=== PATIENT | male | born 1980 | race African-American/Black ===

== ENCOUNTER 2016-11-22 18:40 | Emergency (ER) | payer BC ==
[~2016-11-22] VITALS: Ht 180.3 cm; Wt 122.0 kg
[2016-11-22 18:43] VITALS: PULSE 78; RESP 16; TEMP 98.3; O2SAT 99
[2016-11-22] MEDS ORDERED: ASPI1TAB93 (19:08)
[2016-11-22] MEDS ORDERED: ASPI500T5 (19:08)
[2016-11-22 19:18] LABS: BLOOD, URINE TRACE (NEG); GLUCOSE,URINE NEG (NEG); KETONE, URINE NEG (NEG); NITRITE,URINE NEG (NEG); PH, URINE 5.5 (5.0-8.5)
--- NOTE | 2016-11-22 19:18 | PD ---
HPI Chief Complaint: Complaint Time Seen by Provider: 19:06 Travel History International Travel<30 days: No Contact w/Intl Traveler<30days: No Traveled to known affect area: No History of Present Illness HPI The patient is a 36-year-old male that complains of intermittent midline suprapubic pain for about 4-5 years. This last episode has been happening for about 4 days, he came in today because he just got insurance. He has never told any doctor about this. He denies any nausea, vomiting, fever or diarrhea. He denies any dysuria, frequency or urgency. [facility] Past Medical History Medical History: Denies Significant Hx Tetanus Vaccination: Unknown Influenza Vaccination: No Past Surgical History Surgical History: No Previous Surgery Social History Alcohol Use: No Tobacco Use: Yes (4 CIGARETTES A DAY) Allergies-Medications (Allergen,Severity, Reaction): Coded Allergies: No Known Allergies (Unverified , 11/22/16) Reported Meds & Prescriptions Reported Meds & Active Scripts Active Reported Mary Back & Body Caplet (Aspirin/Caffeine) 1 Each Tablet Excedrin Extra Strength (Flvlgph-Ghbvlgvkcevag-Qwgkuwis) 1 Tab Tab Review of Systems Except as stated in HPI: all other systems reviewed are Neg Physical Exam Narrative GENERAL: The patient is alert, oriented 3 in minimal apparent distress with his midline suprapubic discomfort. His vital signs are normal. SKIN: Focused skin assessment warm/dry. HEAD: Atraumatic. Normocephalic. EYES: Pupils equal and round. No scleral icterus. No injection or drainage. ENT: No nasal bleeding or discharge. Mucous membranes pink and moist. NECK: Trachea midline. No JVD. CARDIOVASCULAR: Regular rate and rhythm. No murmur appreciated. RESPIRATORY: No accessory muscle use. Clear to auscultation. Breath sounds equal bilaterally. GASTROINTESTINAL: Abdomen soft, with minimal discomfort to direct palpation in the midline suprapubic area, nondistended. Hepatic and splenic margins not palpable. No guarding or rebound is present. MUSCULOSKELETAL: No obvious deformities. No clubbing. No cyanosis. No edema. NEUROLOGICAL: Awake and alert. No obvious cranial nerve deficits. Motor grossly within normal limits. Normal speech. PSYCHIATRIC: Appropriate mood and affect; insight and judgment normal. Data Data Last Documented VS Vital Signs Date Time Temp Pulse Resp B/P Pulse Ox O2 Delivery O2 Flow Rate FiO2 6/17/17 19:03 20 11/22/16 18:43 98.3 78 99 Room Air Orders Urinalysis - C+S If Indicated (11/22/16 19:08) Complete Blood Count With Diff (11/22/16 19:20) Comprehensive Metabolic Panel (11/22/16 19:20) Labs Laboratory Tests Test 11/22/16 11/22/16 19:10 19:30 Urine Color YELLOW Urine Turbidity CLEAR Urine pH 5.5 Urine Specific [place] 1.021 Urine Protein NEG mg/dL Urine Glucose (UA) NEG mg/dL Urine Ketones NEG mg/dL Urine Occult Blood TRACE Urine Nitrite NEG Urine Bilirubin NEG Urine Leukocyte Esterase NEG Urine RBC 0-3 /hpf Urine WBC 0-2 /hpf Urine Squamous Epithelial 0-5 /hpf Cells Urine Bacteria NONE /hpf Microscopic Urinalysis Comment CULT NOT INDICATED White Blood Count 7.4 TH/MM3 Red Blood Count 4.24 MIL/MM3 Hemoglobin 12.8 GM/DL Hematocrit 38.2 % Mean Corpuscular Volume 90.1 FL Mean Corpuscular Hemoglobin 30.2 PG Mean Corpuscular Hemoglobin 33.5 % Concent Red Cell Distribution Width 12.4 % Platelet Count 172 TH/MM3 Mean Platelet Volume 9.2 FL Neutrophils (%) (Auto) 50.4 % Lymphocytes (%) (Auto) 41.4 % Monocytes (%) (Auto) 5.1 % Eosinophils (%) (Auto) 2.1 % Basophils (%) (Auto) 1.0 % Neutrophils # (Auto) 3.6 TH/MM3 Lymphocytes # (Auto) 3.1 TH/MM3 Monocytes # (Auto) 0.4 TH/MM3 Eosinophils # (Auto) 0.2 TH/MM3 Basophils # (Auto) 0.1 TH/MM3 CBC Comment DIFF FINAL Differential Comment Sodium Level 142 MEQ/L Potassium Level 4.1 MEQ/L Chloride Level 108 MEQ/L Carbon Dioxide Level 26.0 MEQ/L Anion Gap 8 MEQ/L Blood Urea Nitrogen 11 MG/DL Creatinine 0.95 MG/DL Estimat Glomerular Filtration 109 ML/MIN Rate Random Glucose 85 MG/DL Calcium Level 8.8 MG/DL Total Bilirubin 0.4 MG/DL Aspartate Amino Transf 44 U/L (AST/SGOT) Alanine Aminotransferase 66 U/L (ALT/SGPT) Alkaline Phosphatase 77 U/L Total Protein 7.3 GM/DL Albumin 3.8 GM/DL MDM Medical Decision Making Medical Screen Exam Complete: Yes Emergency Medical Condition: Yes Medical Record Reviewed: Yes Interpretation(s) The complete metabolic profile is normal except for an AST of 44. The CBC is normal except for a hemoglobin of 12.8 and hematocrit of 38.2. Except for trace blood, the urinalysis is normal. Differential Diagnosis Urinary tract infection, prostatitis, abdominal pain etiology undetermined appendicitisunlikely, colitis-unlikely Narrative Course The patient has suprapubic pain etiology undetermined. He does have some nausea with this and it is been going on for 5 months. His urine is totally unremarkable except for trace amount of blood. He states he will get a primary care physician because he just got insurance. This pain should be evaluated by a urologist. Additional Instructions: As we discussed, go through your primary care physician and try and get an evaluation by a urologist. The pain definitely does appear to be tied to urinary symptoms and you do have a trace amount of blood in the urine. Do not drink alcohol or drive on the Lortab 5 or Phenergan. Med/Other Pt SpecificInfo: Prescription(s) given Scripts Promethazine (Phenergan)25 Mg [id number] Mg PO Q6H PRN (NAUSEA OR VOMITING) #20 TAB Ref 0 Prov:Matt Owens MD 11/22/16 Hydrocodone-Acetaminophen (Lortab)5-325 Mg Tab1 Tab PO Q6H PRN (PAIN) #20 TAB Ref 0 Prov:Matt Owens MD 11/22/16 Disposition: 01 DISCHARGE HOME Matt Owens MD Nov 22, 2016 19:18
[2016-11-22 19:21] LABS: URINE COLOR YELLOW (YELLW/STRAW)
[2016-11-22 19:24] LABS: COMMENT (UR) CULT NOT INDICATED; CULTURE IF INDICATED CULT NOT INDICATED; RBC, URINE 0-3 /hpf (0-3); SQUAMOUS EPITHELIAL CELL URINE 0-5 /hpf (0-5); WBC, URINE 0-2 /hpf (0-5)
[2016-11-22 19:37] LABS: AUTOMATED NEUTROPHIL # 3.6 TH/MM3 (1.8-7.7); BASOPHIL # 0.1 TH/MM3 (0-0.2); EOSINOPHIL # 0.2 TH/MM3 (0-0.4); EOSINOPHIL % 2.1 % (0.0-4.0); HEMATOCRIT 38.2 % (39.0-51.0); HEMO FLAGS DIFF FINAL; LYMPH % 41.4 % (9.0-44.0); LYMPHOCYTE # 3.1 TH/MM3 (1.0-4.8); MEAN CELL VOLUME 90.1 FL (80.0-100.0); MEAN CORPUSCULAR HEMOGLOBIN 30.2 PG (27.0-34.0); MEAN CORPUSCULAR HGB CONC 33.5 % (32.0-36.0); MONO % 5.1 % (0.0-8.0); NEUT % 50.4 % (16.0-70.0); PLATELET COUNT 172 TH/MM3 (150-450); RED BLOOD COUNT 4.24 MIL/MM3 (4.50-5.90); RED CELL DISTRIBUTION WIDTH 12.4 % (11.6-17.2); WHITE BLOOD COUNT 7.4 TH/MM3 (4.0-11.0)
[2016-11-22 19:43] LABS: CHLORIDE 108 MEQ/L (98-107); POTASSIUM 4.1 MEQ/L (3.5-5.1); SODIUM (NA) 142 MEQ/L (136-145)
[2016-11-22 19:47] LABS: ANION GAP 8 MEQ/L (5-15)
[2016-11-22 19:48] LABS: BLOOD UREA NITROGEN 11 MG/DL (7-18)
[2016-11-22 19:50] LABS: ALT (GPT) 66 U/L (12-78)
[2016-11-22 19:51] LABS: AST (GOT) 44 U/L (15-37); GLOMERULAR FILTRATION RATE 109 ML/MIN (>89)
[2016-11-22 19:52] LABS: TOTAL BILIRUBIN ADULT 0.4 MG/DL (0.2-1.0)
[2016-11-22 19:53] LABS: ALKALINE PHOSPHATASE 77 U/L (45-117)
[2016-11-22] MEDS ORDERED: HYDR-3533 PO (20:24)
[2016-11-22] MEDS ORDERED: PROM25TA10 PO (20:24)
[2016-11-22 20:49] VITALS: BP 152/84
== END 2016-11-22 21:11 | disposition home or self-care (01) ==
LOC: PHED 18:40
DX: R10.9 Unspecified abdominal pain (principal); R31.9 Hematuria, unspecified
CPT/HCPCS: 80053; 81001; 85025; 99283